=== PATIENT | male | born 2000 | race Two or more races ===

== ENCOUNTER 2023-03-11 14:12 | Emergency (ER) | payer SELFPAY ==
[~2023-03-11] VITALS: Ht 167.6 cm; Wt 112.0 kg
[2023-03-11 15:36] VITALS: BP 133/81; PULSE 80; RESP 18; TEMP 97.6; O2SAT 98
[2023-03-11] MEDS ORDERED: IBUP1TAB5 PO (15:58)
== END 2023-03-11 16:14 | disposition home or self-care (01) ==
LOC: ER 14:12
DX: S86.811A Strain of other muscle(s) and tendon(s) at lower leg level, right leg, initial encounter (principal); Z79.899 Other long term (current) drug therapy; V89.9XXA Person injured in unspecified vehicle accident, initial encounter; Y93.89 Activity, other specified; Y92.89 Other specified places as the place of occurrence of the external cause; Y99.8 Other external cause status
CPT/HCPCS: 73564